=== PATIENT | male | born 1950 | race Caucasian/White ===

== ENCOUNTER 2018-06-10 07:26 | Day surgery (SDC) | payer OTHER ==
[2018-06-05 11:38] VITALS: BMI 29.2
[2018-06-10] MEDS ORDERED: LIDOCAINE HCL/PF 2% SDV 5ML VIAL ONE (08:46)
[2018-06-10] MEDS ORDERED: PROPOFOL 20 ML ONE ×2 (08:46)
[2018-06-10 14:49] VITALS: TEMP 97.8
[2018-06-10 14:57] VITALS: BP 122/75; PULSE 83
--- NOTE | 2018-06-12 15:30 | PATH ---
Surgical Pathology Report Patient Name: IZZY DWYER [facility]. Rec. #: [id number] /Age/Gender: 1950 (Age: 67) / M Account: [id number] Location: [facility] Taken: 06/10/2018 Received: 06/10/2018 Reported: 06/12/2018 Physicians: Naren Soto M.D. Specimen(s) Received SPLENIC FLEXURE HOT SNARE POLYPECTOMY Clinical History History of polyps Postoperative diagnosis: Diverticulosis, polyp Final Diagnosis SPLENIC FLEXURE, POLYP, POLYPECTOMY: TUBULOVILLOUS ADENOMA. Electronically Signed Kiah Levin M.D. Gross Description Received in formalin labeled "polypectomy splenic flexure," is a 1.4 x 1.0 x 0.6 cm mckeon, polypoid portion of soft tissue. The base is inked blue and the specimen is bisected and entirely submitted in one cassette. 06/11/2018 [facility]06/11/2018
== END 2018-06-10 10:30 | disposition home or self-care (01) ==
LOC: FASU-ENDO 07:26
PROVIDERS: ATTEND Internal Medicine Gastroenterology
PROC: 0DBL8ZX Excision of Transverse Colon, Via Natural or Artificial Opening Endoscopic, Diagnostic (ICD-10-PCS; principal; 2018-06-10 09:00)
DX: Z86.010 Personal history of colon polyps (principal); D12.3 Benign neoplasm of transverse colon; K57.30 Diverticulosis of large intestine without perforation or abscess without bleeding
CPT/HCPCS: 88305-TC

== ENCOUNTER 2020-09-13 07:33 | Day surgery (SDC) | payer OTHER ==
[2020-09-11 17:20] VITALS: BMI 28.9
[2020-09-13 09:05] VITALS: TEMP 97.8
[2020-09-13 09:46] VITALS: BP 114/62; PULSE 71
== END 2020-09-13 10:18 | disposition home or self-care (01) ==
LOC: FASU-ENDO 07:33
PROVIDERS: ATTEND Internal Medicine Gastroenterology
PROC: 0DJD8ZZ Inspection of Lower Intestinal Tract, Via Natural or Artificial Opening Endoscopic (ICD-10-PCS; principal; 2020-09-13 08:44)
DX: Z86.010 Personal history of colon polyps (principal); K57.30 Diverticulosis of large intestine without perforation or abscess without bleeding